=== PATIENT | female | born 1945 | race Caucasian/White ===

== ENCOUNTER 2017-06-28 09:01 | Emergency (ER) | payer OTHER ==
[~2017-06-28] VITALS: Ht 152.4 cm; Wt 59.4 kg
[~2017-06-28 09:01] MED LIST: ASPI81EC98; ATEN25TA7
[2017-06-28 09:15] VITALS: BP 155/72
--- NOTE | 2017-06-28 09:20 | NUR ---
PT AMBULATED TO BED 2
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
--- NOTE | 2017-06-28 09:47 | NUR ---
pt to xray via w/c accompanied by instructional technology director
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
[2017-06-28 10:55] VITALS: BP 123/76
--- NOTE | 2017-06-28 10:55 | NUR ---
Patient discharged with v/s stable. Written and verbal after care instructions given and explained. Patient alert, oriented and verbalized understanding of instructions. Ambulatory with to car. All questions addressed prior to discharge. ID band removed. Patient advised to follow up with PMD. Rx of moTRIN given. Patient educated on indication of medication including possible reaction and side effects. Opportunity to ask questions provided and answered.
== END 2017-06-28 10:55 | disposition home or self-care (01) ==
LOC: MED 09:01
DX: S20.212A Contusion of left front wall of thorax, initial encounter (principal); J44.9 Chronic obstructive pulmonary disease, unspecified; E11.9 Type 2 diabetes mellitus without complications; I10 Essential (primary) hypertension; V43.52XA Car driver injured in collision with other type car in traffic accident, initial encounter; Y93.89 Activity, other specified; Y99.8 Other external cause status; Y92.488 Other paved roadways as the place of occurrence of the external cause
CPT/HCPCS: 71101; 73080; 99284